=== PATIENT | female | born 1940 | race Caucasian/White ===

== ENCOUNTER 2025-04-28 07:14 | Day surgery (SDC) | payer MEDICARE ==
[2025-04-27 14:40] VITALS: BMI 42.7
[2025-04-28] MEDS ORDERED: Lidocaine 1% PF 5 ML VIAL ONE (08:06)
[2025-04-28] MEDS ORDERED: PROPOFOL 200 MG/20 ML VIAL ONE (09:04)
[2025-04-28] MEDS ORDERED: PHENYLEPHRINE-NS 100 MCG/ML 10 ML SYRINGE ONE (09:41)
== END 2025-04-28 10:25 | disposition home or self-care (01) ==
LOC: SDC 07:14
PROVIDERS: ATTEND Internal Medicine Gastroenterology
PROC: 0DJD8ZZ Inspection of Lower Intestinal Tract, Via Natural or Artificial Opening Endoscopic (ICD-10-PCS; principal; 2025-04-28)
DX: K59.09 Other constipation (principal); R06.09 Other forms of dyspnea; K64.4 Residual hemorrhoidal skin tags; I10 Essential (primary) hypertension; E78.5 Hyperlipidemia, unspecified; Z79.899 Other long term (current) drug therapy; Z98.890 Other specified postprocedural states; Z86.0101 Personal history of adenomatous and serrated colon polyps
CPT/HCPCS: 45378; J2704